=== PATIENT | female | born 1995 | race Native Hawaiian/Other Pacific Islander ===

== ENCOUNTER 2016-10-26 13:12 | Emergency (ER) | payer OTHER ==
[~2016-10-26] VITALS: Ht 170.2 cm; Wt 113.4 kg
[~2016-10-26 13:12] MED LIST: CALNA OR; CETI10TA PO
[2016-10-26 15:08] LABS: PLATELET COUNT 314 K/uL (152-353)
[2016-10-26 15:17] LABS: POTASSIUM 3.9 mmol/L (3.6-5.2); SODIUM 136 mmol/L (136-145)
[2016-10-26 15:51] VITALS: BP 128/80; TEMP 98
== END 2016-10-26 15:52 | disposition home or self-care (01) ==
LOC: ED 13:12
DX: J20.9 Acute bronchitis, unspecified (principal)
CPT/HCPCS: 36415; 80053; 85027; 87081; 87804; 87880; 99283

== ENCOUNTER 2018-03-17 14:23 | Emergency (ER) | payer OTHER ==
[~2018-03-17] VITALS: Ht 348 cm; Wt 158.8 kg
[2018-03-17 14:41] VITALS: BP 138/78; TEMP 97.3
== END 2018-03-17 15:02 | disposition home or self-care (01) ==
LOC: ED 14:23
DX: Z48.02 Encounter for removal of sutures (principal)

== ENCOUNTER 2018-12-20 12:04 | Emergency (ER) | payer OTHER ==
[~2018-12-20] VITALS: Ht 170.2 cm; Wt 132.0 kg
[2018-12-20 14:58] VITALS: BP 107/81; TEMP 98.2
== END 2018-12-20 14:58 | disposition home or self-care (01) ==
LOC: ED 12:04
DX: R05 Cough (principal); J06.9 Acute upper respiratory infection, unspecified
CPT/HCPCS: 87502; 87651; 99283

== ENCOUNTER 2019-02-15 10:41 | Emergency (ER) | payer OTHER ==
[~2019-02-15] VITALS: Ht 170.2 cm; Wt 158.8 kg
[2019-02-15 10:50] VITALS: TEMP 97.7
[2019-02-15 11:43] LABS: PLATELET COUNT 218 K/uL (152-353)
[2019-02-15 11:52] LABS: POTASSIUM 3.8 mmol/L (3.6-5.2)
[2019-02-15 12:20] LABS: PARTIAL THROMBOPLASTIN TIME 25.1 SECONDS (24.5-33.6)
[2019-02-15 12:58] VITALS: BP 116/74
== END 2019-02-15 12:57 | disposition home or self-care (01) ==
LOC: ED 10:41
PROVIDERS: Hospitalist
DX: R10.84 Generalized abdominal pain (principal); Z3A.09 9 weeks gestation of pregnancy
CPT/HCPCS: 36415; 80053; 81000; 81025; 82150; 83690; 85027; 85610; 85730; 96360; 96365; 99284

== ENCOUNTER 2019-03-05 15:08 | Emergency (ER) | payer OTHER ==
[~2019-03-05] VITALS: Ht 170.2 cm; Wt 132.0 kg
[2019-03-05] MEDS ORDERED: PRENATAL1 T10 PO (15:51)
[2019-03-05 17:15] VITALS: BP 131/82; TEMP 98
== END 2019-03-05 17:15 | disposition home or self-care (01) ==
LOC: ED 15:08
DX: O23.41 Unspecified infection of urinary tract in pregnancy, first trimester (principal); Z3A.12 12 weeks gestation of pregnancy; W10.2XXA Fall (on)(from) incline, initial encounter; W01.198A Fall on same level from slipping, tripping and stumbling with subsequent striking against other object, initial encounter; Y92.89 Other specified places as the place of occurrence of the external cause
CPT/HCPCS: 81000; 87086; 87088; 99284

== ENCOUNTER 2019-03-16 09:00 | Emergency (ER) | payer OTHER ==
[~2019-03-16] VITALS: Ht 170.2 cm; Wt 131.5 kg
[~2019-03-16 09:00] MED LIST changes: +PRENATAL1 T10 PO
[2019-03-16 09:03] VITALS: TEMP 98.7
[2019-03-16 10:11] LABS: PLATELET COUNT 200 K/uL (152-353)
[2019-03-16 10:31] LABS: POTASSIUM 3.7 mmol/L (3.6-5.2)
[2019-03-16 11:27] VITALS: BP 121/67
== END 2019-03-16 11:27 | disposition home or self-care (01) ==
LOC: ED 09:00
PROVIDERS: Family Medicine
DX: O21.0 Mild hyperemesis gravidarum (principal); O23.42 Unspecified infection of urinary tract in pregnancy, second trimester; Z3A.14 14 weeks gestation of pregnancy
CPT/HCPCS: 80053; 81000; 84702; 85027; 99284

== ENCOUNTER 2019-05-08 12:06 | Emergency (ER) | payer OTHER ==
[~2019-05-08] VITALS: Ht 170.2 cm; Wt 136.1 kg
[2019-05-08 12:12] VITALS: TEMP 97.2
[2019-05-08 13:23] LABS: PLATELET COUNT 206 K/uL (152-353)
[2019-05-08 13:42] LABS: POTASSIUM 3.8 mmol/L (3.6-5.2)
[2019-05-08 15:46] VITALS: BP 123/70
== END 2019-05-08 15:46 | disposition home or self-care (01) ==
LOC: ED 12:06
PROVIDERS: Family Medicine
DX: K59.09 Other constipation (principal); O23.42 Unspecified infection of urinary tract in pregnancy, second trimester; O22.42 Hemorrhoids in pregnancy, second trimester
CPT/HCPCS: 80053; 81000; 85027; 87086; 87088; 99284

== ENCOUNTER 2019-05-10 12:33 | Emergency (ER) | payer OTHER ==
[~2019-05-10] VITALS: Ht 170.2 cm; Wt 136.1 kg
[2019-05-10 12:40] VITALS: TEMP 97.9
[2019-05-10 13:25] VITALS: BP 118/66
== END 2019-05-10 13:25 | disposition home or self-care (01) ==
LOC: ED 12:33
DX: O22.43 Hemorrhoids in pregnancy, third trimester (principal); Z3A.36 36 weeks gestation of pregnancy; K60.2 Anal fissure, unspecified
CPT/HCPCS: 99282; 99284

== ENCOUNTER 2019-07-12 21:25 | Emergency (ER) | payer OTHER ==
[~2019-07-12] VITALS: Ht 170.2 cm; Wt 158.8 kg
[2019-07-12 22:28] LABS: PLATELET COUNT 210 K/uL (152-353)
[2019-07-12 22:35] LABS: POTASSIUM 3.6 mmol/L (3.6-5.2)
[2019-07-12 23:10] VITALS: BP 123/76; TEMP 98.1
== END 2019-07-12 23:10 | disposition short-term general hospital (02) ==
LOC: ED 21:25
PROVIDERS: Emergency Medicine
DX: O60.03 Preterm labor without delivery, third trimester (principal)
CPT/HCPCS: 36415; 80053; 84702; 85027; 96360; 99285

== ENCOUNTER 2019-08-06 18:32 | Outpatient (CLI) | payer OTHER | END 2019-08-06 18:45 | disposition short-term general hospital (02) | LOC: AMB 18:32 | DX: R10.9 Unspecified abdominal pain (principal); Z33.1 Pregnant state, incidental; Y04.0XXA Assault by unarmed brawl or fight, initial encounter; Y92.89 Other specified places as the place of occurrence of the external cause | CPT/HCPCS: A0425; A0429 ==

== ENCOUNTER 2019-08-06 18:42 | Emergency (ER) | payer OTHER ==
[~2019-08-06] VITALS: Ht 170.2 cm; Wt 158.8 kg
[2019-08-06 21:34] VITALS: BP 140/83; TEMP 98.8
== END 2019-08-06 21:34 | disposition home or self-care (01) ==
LOC: ED 18:42
DX: S90.01XA Contusion of right ankle, initial encounter (principal); T14.90XA Injury, unspecified, initial encounter; Z33.1 Pregnant state, incidental; Y04.0XXA Assault by unarmed brawl or fight, initial encounter; Y92.512 Supermarket, store or market as the place of occurrence of the external cause
CPT/HCPCS: 99284

== ENCOUNTER 2020-07-24 14:18 | Emergency (ER) | payer OTHER ==
[~2020-07-24] VITALS: Ht 170.2 cm; Wt 158.8 kg
[2020-07-24 14:28] VITALS: BP 131/90; TEMP 98.3
== END 2020-07-24 15:44 | disposition home or self-care (01) ==
LOC: ED 14:18
DX: H60.8X1 Other otitis externa, right ear (principal); J32.8 Other chronic sinusitis
CPT/HCPCS: 96372; 99283; J0696; J1885

== ENCOUNTER 2021-03-12 14:53 | Emergency (ER) | payer OTHER ==
[~2021-03-12] VITALS: Ht 170.2 cm; Wt 158.8 kg
[2021-03-12 15:02] VITALS: BP 155/89; TEMP 97
== END 2021-03-12 15:53 | disposition home or self-care (01) ==
LOC: ED 14:53
DX: S05.8X1A Other injuries of right eye and orbit, initial encounter (principal); W40.8XXA Explosion of other specified explosive materials, initial encounter; Y92.89 Other specified places as the place of occurrence of the external cause
CPT/HCPCS: 99283